=== PATIENT | female | born 1995 | race Asian ===

== ENCOUNTER 2016-03-23 18:30 | Emergency (ER) | payer SELFPAY | END 2016-03-23 20:02 | disposition left against medical advice (07) | LOC: ER 18:30 | DX: R51 Headache (principal); R11.10 Vomiting, unspecified; Z53.21 Procedure and treatment not carried out due to patient leaving prior to being seen by health care provider ==

== ENCOUNTER 2017-11-12 07:47 | Inpatient (IN) | payer SELFPAY ==
[~2017-11-12] VITALS: Ht 167.6 cm; Wt 93.0 kg
[2017-11-12] MEDS ORDERED: IV RINGERS,LACTATED 1000ML 1,000 ML IV SCH (08:29)
[2017-11-12] MEDS ORDERED: MAG HYDROX/ALUMINUM HYD/SIMETH 30 ML ORAL.SUSP PO PRN ×2 (08:30→09:45)
[2017-11-12] MEDS ORDERED: ONDANSETRON PF 4 MG/2 ML VIAL. IV PRN (08:30)
[2017-11-12] MEDS ORDERED: LIDOCAINE 1% PF 30 ML VIAL. INJ PRN (08:30)
[2017-11-12] MEDS ORDERED: OXYTOCIN 30 UNIT/500 ML PREMIX 500 ML IV PRN ×3 (08:30→09:45)
[2017-11-12] MEDS ORDERED: TERBUTALINE 1 MG/ML VIAL. SQ PRN (08:30)
[2017-11-12] MEDS ORDERED: 0.9 % SODIUM CHLORIDE 10 ML DISP.SYRIN. IV PRN ×2 (08:30→09:45)
[2017-11-12] MEDS ORDERED: fentaNYL PF VIAL 100 MCG/2 ML VIAL IV PRN (08:30)
[2017-11-12 09:00] LABS: BASO % 0 % (0-3); EOS # 0.9 x10^3/uL (0.0-0.7); EOS % 7 % (0-3); HEMATOCRIT 32.6 % (36.0-47.0); HEMOGLOBIN 10.4 g/dL (12.0-15.5); LYMPH # 1.8 x10^3/uL (1.0-4.8); LYMPH % 15 % (24-48); MEAN CORPUSCULAR HEMOGLOBIN 24 pg (25-35); MEAN CORPUSCULAR HGB CONC 32 g/dL (31-37); MEAN CORPUSCULAR VOLUME 75 fL (79-100); MONO # 0.7 x10^3/uL (0.0-1.1); MONO % 6 % (0-9); NEUT # 9.1 x10^3uL (1.8-7.7); NEUT % 73 % (31-73); PLATELET COUNT 297 x10^3/uL (140-400); RED BLOOD COUNT 4.33 x10^6/uL (3.50-5.40); RED CELL DISTRIBUTION WIDTH 17.6 % (11.5-14.5); WHITE BLOOD COUNT 12.6 x10^3/uL (4.0-11.0)
[2017-11-12] MEDS ORDERED: AMPICILLIN SODIUM 2 GM in IV NORMAL SALINE 100ML 100 ML IV ONE (09:00)
[2017-11-12 09:12] VITALS: BP 108/67
[2017-11-12] MEDS ORDERED: CARBOPROST TROMETHAMINE 250 MCG/ML AMPUL IM ONE ×2 (09:39→09:45)
[2017-11-12] MEDS ORDERED: BENZOCAINE 20% TOPICAL AEROSOL SPRAY 57GM CAN. TP PRN (09:45)
[2017-11-12] MEDS ORDERED: ZOLPIDEM 5 MG TABLET. PO PRN (09:45)
[2017-11-12] MEDS ORDERED: MAGNESIUM HYDROXIDE 2,400 MG/30 ML ORAL.SUSP. PO PRN (09:45)
[2017-11-12] MEDS ORDERED: HYDROCORTISONE 1% TOPICAL OINTMENT 30GM TUBE. TP PRN (09:45)
[2017-11-12] MEDS ORDERED: ACETAMINOPHEN 325 MG TABLET. PO PRN (09:45)
[2017-11-12] MEDS ORDERED: PHENYLEPH/MINERAL OIL/PETROLAT RECTAL OINTMENT 28GM TUBE. RC PRN (09:45)
[2017-11-12] MEDS ORDERED: SIMETHICONE 80 MG TAB.CHEW PO PRN (09:45)
[2017-11-12] MEDS ORDERED: diphenhydrAMINE HCL 25 MG CAPSULE PO PRN (09:45)
[2017-11-12] MEDS ORDERED: IBUPROFEN 800 MG TABLET. PO SCH (09:45)
--- NOTE | 2017-11-12 09:50 | PDOC ---
VAGINAL DELIVERY DATE DATE: 11/12/17 TIME: 09:47 : 2 Para: 1 VAGINAL DELIVERY: VTX VACCUM ASSISTED: Yes NUMBER OF PULLS 3 NUMBER OF POP OFFS 1 SEX: Female WEIGHT 7/8 Nuchal Cord: No Amniotic Fluid: Clear PAIN: Natural EPISIOTOMY: No EXTENSION: No EBL 500cc COMPLICATIONS None CONDITION Stable Signs of Intrauterine Infectio: None Shoulder Dystocia: No DIAGNOSIS JAMESON Juarez MD Nov 12, 2017 09:50
[2017-11-12] MEDS ORDERED: AMPICILLIN SODIUM 1 GM in IV NORMAL SALINE 50ML 50 ML IV SCH (12:00)
[2017-11-12 13:00] VITALS: BP 104/62
[2017-11-12 14:00] VITALS: BP 95/64
[2017-11-12] MEDS ORDERED: FERROUS SULFATE 325 MG TABLET. PO SCH (17:00)
[2017-11-12 18:03] VITALS: BP 110/68
[2017-11-13] VITALS: BP 100/62
[2017-11-13 04:00] VITALS: BP 114/70
--- NOTE | 2017-11-13 09:28 | PDOC ---
Provider Note Provider Note Doing well VSS uterus NTTP FU in AM Vital Sign - Last 24 Hours 11/12/17 11/12/17 11/12/17 11/12/17 13:00 13:00 14:00 18:03 Temp 98.0 98.0 98.3 98.0 98.0 98.3 Pulse 76 76 80 Resp 24 20 20 B/P (MAP) 104/62 (76) 95/64 (74) 110/68 (82) Pulse Ox 99 99 99 O2 Delivery Room Air Room Air Room Air Room Air 11/12/17 11/13/17 11/13/17 19:47 00:00 04:00 Temp 98.3 98.0 98.3 98.0 Pulse 81 81 Resp 18 B/P (MAP) 100/62 (75) 114/70 (85) Pulse Ox 97 95 O2 Delivery Room Air Room Air Room Air CBC - BMP 11/13/17 04:25 JAMESON DE LA GARZA MD Nov 13, 2017 09:28
[2017-11-13] MEDS ORDERED: IBUPROFEN 800 MG TABLET. PO PRN (10:00)
[2017-11-13 10:30] VITALS: BP 96/63
[2017-11-13 17:40] VITALS: BP 98/61
[2017-11-13 22:30] VITALS: BP 123/80
[2017-11-14 05:05] VITALS: BP 123/83
--- NOTE | 2017-11-14 12:51 | PDOC3 ---
OB DISCHARGE SUMMARY DATE OF ADMISSION: 11/12/17 DATE OF DISCHARGE: 11/14/17 REASON FOR ADMISSION: Onset of labor INTRAPARTUM PROCEDURES: Spontanous Vag Deliv DISCHARGE DIAGNOSIS: Term Delivered DISCHARGE INFORMATION: Activity (ad sonya), Diet (regular), Instructions (pelvic rest x 6 wks) HOSPITAL COURSE Term gestation delivered vaginally without any complications JOEY WATSON Jr, MD Nov 14, 2017 12:51
--- NOTE | 2017-11-14 12:52 | DISCH ---
DISCHARGE INSTRUCTIONS Condition on Discharge Condition on Discharge: Stable Activity After Discharge Activity Instructions for Disc: Activity as tolerated Lifting Instructions after Dis: No heavy lifting Driving Instructions after Dis: Do not drive today Diet after Discharge Diet after Discharge: Regular Contacting the [facility] after DC Call your doctor for: Concerns you may have Follow-Up Follow up with: Jessica in 6 wks. JOEY WATSON Jr, MD Nov 14, 2017 12:52
[2017-11-14] MEDS ORDERED: NAPR-683 PO (12:54)
[2017-11-14] MEDS ORDERED: HYDR-971 PO (12:54)
== END 2017-11-14 14:20 | disposition home or self-care (01) | DRG 775 ==
LOC: OBSVTOIN 07:47 → 3 SO LND 07:47 → 3 NORTH 13:00
PROVIDERS: ADMIT Specialist; ATTEND Specialist
PROC: 10E0XZZ Delivery of Products of Conception, External Approach (ICD-10-PCS; principal; 2017-11-12)
DX: O80 Encounter for full-term uncomplicated delivery (principal); Z37.0 Single live birth; Z3A.39 39 weeks gestation of pregnancy
CPT/HCPCS: 36415; 85014; 85025; 86592; 86850; 86900; 86901; 87653; G0378; J0290; J2590; J7120

== ENCOUNTER 2019-01-16 06:48 | Observation (INO) | payer SELFPAY ==
[~2019-01-16 06:48] MED LIST: HYDR-3164 PO; NAPR-683 PO
[2019-01-16] MEDS ORDERED: IV RINGERS,LACTATED 1000ML 1,000 ML IV SCH (06:54)
[2019-01-16 07:17] LABS: BILIRUBIN,URINE SMALL (NEG); CLARITY,URINE CLEAR; COLOR,URINE AMBER; NITRITE,URINE NEGATIVE (NEG); PH,URINE 6.5; PROTEIN,URINE NEGATIVE (NEG-TRACE)
[2019-01-16 07:42] LABS: SQUAMOUS EPITHELIAL CELL,UR MANY /LPF
[2019-01-16 07:43] LABS: BACTERIA,URINE FEW /HPF (0-FEW); RBC,URINE RARE /HPF (0-2); WBC,URINE OCC /HPF (0-4)
[2019-01-16] MEDS ORDERED: PANTOPRAZOLE 40 MG TABLET.DR. PO ONE (07:45)
[2019-01-16] MEDS ORDERED: ACETAMINOPHEN 500 MG TABLET PO ONE (07:45)
[2019-01-16 08:12] LABS: BASO % 0 % (0-3); EOS # 0.1 x10^3/uL (0.0-0.7); EOS % 1 % (0-3); HEMATOCRIT 29.8 % (36.0-47.0); HEMOGLOBIN 9.7 g/dL (12.0-15.5); LYMPH # 0.5 x10^3/uL (1.0-4.8); LYMPH % 7 % (24-48); MEAN CORPUSCULAR HEMOGLOBIN 25 pg (25-35); MEAN CORPUSCULAR HGB CONC 33 g/dL (31-37); MEAN CORPUSCULAR VOLUME 77 fL (79-100); MONO # 0.6 x10^3/uL (0.0-1.1); MONO % 9 % (0-9); NEUT # 5.8 x10^3/uL (1.8-7.7); NEUT % 83 % (31-73); PLATELET COUNT 231 x10^3/uL (140-400); RED BLOOD COUNT 3.86 x10^6/uL (3.50-5.40); RED CELL DISTRIBUTION WIDTH 16.3 % (11.5-14.5)
[2019-01-16 08:20] LABS: BARBITURATES NEG (NEG); BENZODIAZEPINES NEG (NEG); CANNABINOIDS NEG (NEG); COCAINE NEG (NEG); METHADONE NEG (NEG); OPIATES NEG (NEG); PHENCYCLIDINE NEG (NEG)
[2019-01-16 08:21] LABS: AMPHETAMINE/METHAMPHETAMINE NEG (NEG)
--- NOTE | 2019-01-16 09:07 | RAD ---
OB ULTRASOUND, > 14 WEEKS Clinical Indication: No care. Comparison: None. Technique: Multiple grayscale images, color Doppler, and M-mode images of the uterus are obtained. Findings: There is a single intrauterine gestation in vertex presentation. The placenta is anterior in location without evidence of placenta previa. The amount of amniotic fluid appears appropriate. Amniotic fluid index is 14.8 cm. The cervix is not visualized. Biometrical data: BPD = 8.1 cm for 32 weeks 4 days. HC = 29.7 cm for 32 weeks 6 days. AC = 28.2 cm for 32 weeks 1 days. FL = 6.2 cm for 32 weeks 0 days. HC/AC ratio = 1.06. Overall, the estimated sonographic gestational age is 32 weeks and 3 days for an estimated date of delivery of March 10, 2019. Estimated weight is 1931 +/- 286 grams. A 4 chamber heart is identified with positive cardiac activity. The estimated heart rate is 157 beats per minute. stomach and urinary bladder are identified. Both kidneys are seen. The visualized spine is unremarkable. A complete anatomic survey is not performed due to advanced gestational age. Impression: Single live intrauterine with estimated sonographic gestational age of 32 weeks and 3 days. Electronically signed by: Alfredo Laboy MD (01/16/2019 9:04 AM) [facility]
== END 2019-01-16 11:10 | disposition home or self-care (01) ==
LOC: 3 SO LND 06:48
PROVIDERS: ADMIT Obstetrics & Gynecology; ATTEND Obstetrics & Gynecology
DX: O26.893 Other specified pregnancy related conditions, third trimester (principal); R10.13 Epigastric pain; R51 Headache; Z3A.32 32 weeks gestation of pregnancy
CPT/HCPCS: 36415; 76805; 80307; 81001; 85025; 86592; 86703; 86706; 86762; 86850; 86900; 86901; 87491; 87529; 87591; G0378; G0379; J7120

== ENCOUNTER 2020-08-27 21:30 | Emergency (ER) | payer MEDICAID ==
[~2020-08-27] VITALS: Ht 172.7 cm; Wt 90.0 kg
[~2020-08-27 21:30] MED LIST changes: +DOCU-109 PO; +FERR325T14 PO; +IBUP-1060 PO
[2020-08-27 23:00] VITALS: BP 105/68
[2020-08-28 00:05] LABS: BILIRUBIN,URINE NEGATIVE (NEG); CLARITY,URINE CLOUDY; COLOR,URINE YELLOW; NITRITE,URINE NEGATIVE (NEG); PROTEIN,URINE 100 mg/dL (NEG-TRACE)
[2020-08-28 00:08] LABS: U PREG PATIENT POSITIVE (NEG)
[2020-08-28 00:11] LABS: BACTERIA,URINE MANY /HPF (0-FEW); WBC,URINE TNTC /HPF (0-4)
== END 2020-08-28 01:56 | disposition left against medical advice (07) ==
LOC: ER 21:30
DX: R30.0 Dysuria (principal); Z53.21 Procedure and treatment not carried out due to patient leaving prior to being seen by health care provider
CPT/HCPCS: 81001; 81025; 87086

== ENCOUNTER 2021-03-18 09:08 | Inpatient (IN) | payer MEDICAID ==
[~2021-03-18] VITALS: Ht 160 cm; Wt 97.0 kg
[2021-03-18] MEDS ORDERED: TERBUTALINE 1 MG/ML VIAL. SQ PRN (09:30)
[2021-03-18] MEDS ORDERED: IBUPROFEN 400 MG TABLET. PO PRN (09:30)
[2021-03-18] MEDS ORDERED: PENICILLIN G K 5,000,000 UNIT in IV DEXTROSE 5% 100ML 100 ML IV ONE (09:30)
[2021-03-18] MEDS ORDERED: LIDOCAINE 1% PF 30 ML VIAL. INJ PRN (09:30)
[2021-03-18] MEDS ORDERED: IV RINGERS,LACTATED 1000ML 1,000 ML IV SCH (09:30)
[2021-03-18] MEDS ORDERED: 0.9 % SODIUM CHLORIDE 10 ML DISP.SYRIN. IV PRN ×2 (09:30→12:30)
[2021-03-18] MEDS ORDERED: OXYTOCIN 30 UNIT/500 ML PREMIX 500 ML IV PRN ×3 (09:30→12:30)
[2021-03-18] MEDS ORDERED: OXYTOCIN PREMIX 30 UNIT/500 ML NS BAG. IV ONE (10:00)
[2021-03-18 10:06] LABS: BASO # 0.1 x10^3/uL (0.0-0.2); BASO % 1 % (0-3); EOS # 0.2 x10^3/uL (0.0-0.7); EOS % 2 % (0-3); HEMATOCRIT 32.5 % (36.0-47.0); HEMOGLOBIN 10.5 g/dL (12.0-15.5); LYMPH # 2.7 x10^3/uL (1.0-4.8); LYMPH % 23 % (24-48); MEAN CORPUSCULAR HEMOGLOBIN 24 pg (25-35); MEAN CORPUSCULAR HGB CONC 32 g/dL (31-37); MEAN CORPUSCULAR VOLUME 73 fL (79-100); MONO # 0.9 x10^3/uL (0.0-1.1); MONO % 7 % (0-9); NEUT # 7.8 x10^3/uL (1.8-7.7); NEUT % 67 % (31-73); PLATELET COUNT 390 x10^3/uL (140-400); RED BLOOD COUNT 4.48 x10^6/uL (3.50-5.40); RED CELL DISTRIBUTION WIDTH 19.9 % (11.5-14.5); WHITE BLOOD COUNT 11.5 x10^3/uL (4.0-11.0)
[2021-03-18 10:24] LABS: CALCIUM 8.4 mg/dL (8.5-10.1); CREATININE 0.8 mg/dL (0.6-1.0); GFR 87.4; POTASSIUM 3.7 mmol/L (3.5-5.1)
[2021-03-18 10:31] LABS: ALBUMIN 2.8 g/dL (3.4-5.0); ALBUMIN/GLOBULIN RATIO 0.5 (1.0-1.7); TOTAL BILIRUBIN 0.6 mg/dL (0.2-1.0); TOTAL PROTEIN 8.1 g/dL (6.4-8.2)
[2021-03-18] MEDS ORDERED: DOCUSATE SODIUM 100 MG CAPSULE. PO PRN (12:30)
[2021-03-18] MEDS ORDERED: diphenhydrAMINE HCL 25 MG CAPSULE PO PRN (12:30)
[2021-03-18] MEDS ORDERED: HYDROCORTISONE 1% TOPICAL OINTMENT 30GM TUBE. TP PRN (12:30)
[2021-03-18] MEDS ORDERED: MAG HYDROX/ALUMINUM HYD/SIMETH 30 ML ORAL.SUSP PO PRN (12:30)
[2021-03-18] MEDS ORDERED: SIMETHICONE 80 MG TAB.CHEW PO PRN (12:30)
[2021-03-18] MEDS ORDERED: TDaP (BOOSTRIX) per PROTOCOL. MC PRN (12:30)
[2021-03-18] MEDS ORDERED: BENZOCAINE 20% TOPICAL AEROSOL SPRAY 57GM CAN. TP PRN (12:30)
[2021-03-18] MEDS ORDERED: PHENYLEPH/MINERAL OIL/PETROLAT RECTAL OINTMENT TUBE. RC PRN (12:30)
[2021-03-18] MEDS ORDERED: MMR per PROTOCOL. MC PRN (12:30)
[2021-03-18] MEDS ORDERED: ACETAMINOPHEN 325 MG TABLET. PO PRN (12:30)
--- NOTE | 2021-03-18 13:56 | PDOC1 ---
[facility] H[facility]P Date of Admission: Date of Admission: Mar 18, 2021 at 09:08 History of Present Illness: 26yo presents with complaints of painful UCs, onset 0700. 9cm on arrival. No PNC. FH: 36cm - vtx well descended in pelvis. Denies LOF. Support person present for assistance with interpretation. Denies significant medical history. Denies complications with previous pregnancies, labor, or delivery. Previous x 4. Pelvis proven to 7lbs. Otherwise denies complaints. Past Medical History: Cardiovascular: No pertinent hx Pulmonary: No pertinent hx GI: No pertinent hx Heme/Onc: No pertinent hx Hepatobiliary: No pertinent hx Psych: No pertinent hx Rheumatologic: No pertinent hx Infectious disease: No pertinent hx ENT: No pertinent hx Renal/: No pertinent hx Endocrine: No pertinent hx Dermatology: No pertinent hx Grav: 5 Para: 4 Social History: Smoke: No ALCOHOL: none Drugs: None Medications: Meds: Current Medications Medications (Trade) Dose Ordered Sig/Sofia Route PRN Reason Start Time Stop Time Status Last Admin Dose Admin Ibuprofen (Motrin) 800 mg PRN Q6HRS PRN PO PAIN 03/18/21 09:30 03/18/21 11:46 Allergies: Coded Allergies: No Known Drug Allergies (Unverified , 11/12/17) Physical Exam: PE: GENERAL: No apparent distress. Alert and oriented. HEENT: Head normocephalic, atraumatic. NECK: Supple LUNGS: Clear to auscultation. HEART: RRR, S1, S2 present, pulses intact ABDOMEN: Soft, positive bowel sounds. EXTREMITIES: No cyanosis or edema. NEUROLOGIC: Normal speech, normal tone PSYCHIATRIC: Normal affect, normal mood. SKIN: No ulceration. Labs: Laboratory Tests Test 03/18/21 09:43 03/18/21 10:05 White Blood Count 11.5 x10^3/uL (4.0-11.0) H Red Blood Count 4.48 x10^6/uL (3.50-5.40) Hemoglobin 10.5 g/dL (12.0-15.5) L Hematocrit 32.5 % (36.0-47.0) L Mean Corpuscular Volume 73 fL (79-100) L Mean Corpuscular Hemoglobin 24 pg (25-35) L Mean Corpuscular Hemoglobin Concent 32 g/dL (31-37) Red Cell Distribution Width 19.9 % (11.5-14.5) H Platelet Count 390 x10^3/uL (140-400) Neutrophils (%) (Auto) 67 % (31-73) Lymphocytes (%) (Auto) 23 % (24-48) L Monocytes (%) (Auto) 7 % (0-9) Eosinophils (%) (Auto) 2 % (0-3) Basophils (%) (Auto) 1 % (0-3) Neutrophils # (Auto) 7.8 x10^3/uL (1.8-7.7) H Lymphocytes # (Auto) 2.7 x10^3/uL (1.0-4.8) Monocytes # (Auto) 0.9 x10^3/uL (0.0-1.1) Eosinophils # (Auto) 0.2 x10^3/uL (0.0-0.7) Basophils # (Auto) 0.1 x10^3/uL (0.0-0.2) Sodium Level 140 mmol/L (136-145) Potassium Level 3.7 mmol/L (3.5-5.1) Chloride Level 103 mmol/L (98-107) Carbon Dioxide Level 22 mmol/L (21-32) Anion Gap 15 (6-14) H Blood Urea Nitrogen 9 mg/dL (7-20) Creatinine 0.8 mg/dL (0.6-1.0) Estimated GFR (Cockcroft-Gault) 87.4 BUN/Creatinine Ratio 11 (6-20) Glucose Level 82 mg/dL (70-99) Calcium Level 8.4 mg/dL (8.5-10.1) L Total Bilirubin 0.6 mg/dL (0.2-1.0) Aspartate Amino Transferase (AST) 23 U/L (15-37) Alanine Aminotransferase (ALT) 20 U/L (14-59) Alkaline Phosphatase 182 U/L (46-116) H Total Protein 8.1 g/dL (6.4-8.2) Albumin 2.8 g/dL (3.4-5.0) L Albumin/Globulin Ratio 0.5 (1.0-1.7) L Treponema pallidum Antibody Nonreactive (Nonreactive) Hepatitis B Surface Antigen Nonreactive (Nonreactive) HIV (1&2) Antibody Screen Nonreactive (Nonreactive) SARS-CoV-2 RNA (SUMI) Negative (Negative) SARS-CoV-2 Antigen (Rapid) Negative (NEGATIVE) Laboratory Tests 03/18/21 09:43 Laboratory Tests 03/18/21 09:43 Laboratory Tests 03/18/21 09:43 Assessment & Plan: A/P 1. 26yo 2. Labor 3. No PNC - FH c/w term , labs pending 4. GBS unknown - collected/pending Precipitous labor, expectant management, anticipate imminent . VALENTINE BOONE CNM Mar 18, 2021 13:56
[2021-03-18] MEDS ORDERED: PENICILLIN G K 2,500,000 UNIT in IV DEXTROSE 5% 50 ML IV SCH (14:00)
[2021-03-18 14:30] VITALS: BP 112/77
[2021-03-18 17:30] VITALS: BP 110/56
--- NOTE | 2021-03-18 19:07 | PDOC4 ---
VAGINAL DELIVERY DATE DATE: 03/18/21 TIME: 19:02 TIME 0947 : 5 Para: 4 VAGINAL DELIVERY: VTX VACCUM ASSISTED: No PLACENTA: Spontaneous 8/9 SEX: Male WEIGHT Weight [7lb10.4oz (3470gm)] Nuchal Cord: No Amniotic Fluid: Meconium PAIN: Natural EPISIOTOMY: No EBL 400mL ADDITIONAL NOTES Precipitous delivery, RN assisted delivery with EDDIM in constant attendance. VTX delivered GAL with external rotation to ROT immediately followed by full expulsion of vigorous male . Intact perineum. Signs of Intrauterine Infectio: None Shoulder Dystocia: No DIAGNOSIS VALENTINE BOONE CNM Mar 18, 2021 19:07
[2021-03-18 20:00] VITALS: BP 131/78
[2021-03-18 22:58] LABS: BILIRUBIN,URINE NEGATIVE (NEG); CLARITY,URINE CLEAR; COLOR,URINE YELLOW; NITRITE,URINE NEGATIVE (NEG); PROTEIN,URINE NEGATIVE (NEG-TRACE)
[2021-03-18 23:05] LABS: BACTERIA,URINE 0 /HPF (0-FEW); BARBITURATES NEG (NEG); BENZODIAZEPINES NEG (NEG); CANNABINOIDS NEG (NEG); COCAINE NEG (NEG); METHADONE NEG (NEG); OPIATES NEG (NEG); PHENCYCLIDINE NEG (NEG); RBC,URINE 20-40 /HPF (0-2)
[2021-03-18 23:06] LABS: AMPHETAMINE/METHAMPHETAMINE NEG (NEG)
[2021-03-19 01:00] VITALS: BP 120/61
[2021-03-19 05:00] VITALS: BP 126/77
[2021-03-19] MEDS: MULTIVITAMIN with MINERAL TABLET. PO SCH (08:27)
[2021-03-19] MEDS: IBUPROFEN 400 MG TABLET. PO PRN (08:27)
[2021-03-19] MEDS: FERROUS SULFATE 325 MG TABLET. PO SCH ×2 (08:27→17:41)
[2021-03-19 08:30] VITALS: BP 133/69
[2021-03-19 08:33] LABS: BASO % 0 % (0-3); EOS # 0.3 x10^3/uL (0.0-0.7); EOS % 2 % (0-3); HEMATOCRIT 27.6 % (36.0-47.0); HEMOGLOBIN 8.8 g/dL (12.0-15.5); LYMPH # 2.1 x10^3/uL (1.0-4.8); LYMPH % 19 % (24-48); MEAN CORPUSCULAR HEMOGLOBIN 23 pg (25-35); MEAN CORPUSCULAR HGB CONC 32 g/dL (31-37); MEAN CORPUSCULAR VOLUME 72 fL (79-100); MONO # 0.7 x10^3/uL (0.0-1.1); MONO % 6 % (0-9); NEUT # 7.9 x10^3/uL (1.8-7.7); NEUT % 72 % (31-73); PLATELET COUNT 290 x10^3/uL (140-400); RED BLOOD COUNT 3.82 x10^6/uL (3.50-5.40)
--- NOTE | 2021-03-19 10:02 | PDOC ---
SORORITY SUPERVISOR PROGRESS NOTE Date of Service: DATE: 03/19/21 TIME: 10:01 Subjective: Pt with good pain control. Max PO. Voiding. Minimal lochia. Objective: Vital Signs: Vital Signs Date Time Temp Pulse Resp B/P (MAP) Pulse Ox O2 Delivery O2 Flow Rate FiO2 03/18/21 14:30 98.8 83 20 112/77 (89) 98.8 03/18/21 20:00 98 Room Air Vital Signs Date Time Temp Pulse Resp B/P (MAP) Pulse Ox O2 Delivery O2 Flow Rate FiO2 03/19/21 05:00 98.6 65 18 126/77 (93) 98 Room Air 98.6 Labs: Laboratory Tests Test 03/18/21 10:05 03/18/21 22:45 03/19/21 08:15 SARS-CoV-2 RNA (SUMI) Negative (Negative) SARS-CoV-2 Antigen (Rapid) Negative (NEGATIVE) Urine Collection Type Unknown Urine Color Yellow Urine Clarity Clear Urine pH 7.0 (<5.0-8.0) Urine Specific [place] 1.015 (1.000-1.030) Urine Protein Negative mg/dL (NEG-TRACE) Urine Glucose (UA) Negative mg/dL (NEG) Urine Ketones (Stick) Negative mg/dL (NEG) Urine Blood Moderate (NEG) Urine Nitrite Negative (NEG) Urine Bilirubin Negative (NEG) Urine Urobilinogen Dipstick 2.0 mg/dL (0.2 mg/dL) Urine Leukocyte Esterase Trace (NEG) Urine RBC 20-40 /HPF (0-2) Urine WBC 1-4 /HPF (0-4) Urine Squamous Epithelial Cells Few /LPF Urine Bacteria 0 /HPF (0-FEW) Urine Mucus Slight /LPF Urine Opiates Screen Neg (NEG) Urine Methadone Screen Neg (NEG) Urine Barbiturates Neg (NEG) Urine Phencyclidine Screen Neg (NEG) Urine Amphetamine/Methamphetamine Neg (NEG) Urine Benzodiazepines Screen Neg (NEG) Urine Cocaine Screen Neg (NEG) Urine Cannabinoids Screen Neg (NEG) Urine Ethyl Alcohol Neg (NEG) White Blood Count 11.0 x10^3/uL (4.0-11.0) Red Blood Count 3.82 x10^6/uL (3.50-5.40) Hemoglobin 8.8 g/dL (12.0-15.5) L Hematocrit 27.6 % (36.0-47.0) L Mean Corpuscular Volume 72 fL (79-100) L Mean Corpuscular Hemoglobin 23 pg (25-35) L Mean Corpuscular Hemoglobin Concent 32 g/dL (31-37) Red Cell Distribution Width 20.0 % (11.5-14.5) H Platelet Count 290 x10^3/uL (140-400) Neutrophils (%) (Auto) 72 % (31-73) Lymphocytes (%) (Auto) 19 % (24-48) L Monocytes (%) (Auto) 6 % (0-9) Eosinophils (%) (Auto) 2 % (0-3) Basophils (%) (Auto) 0 % (0-3) Neutrophils # (Auto) 7.9 x10^3/uL (1.8-7.7) H Lymphocytes # (Auto) 2.1 x10^3/uL (1.0-4.8) Monocytes # (Auto) 0.7 x10^3/uL (0.0-1.1) Eosinophils # (Auto) 0.3 x10^3/uL (0.0-0.7) Basophils # (Auto) 0.0 x10^3/uL (0.0-0.2) Laboratory Tests 03/19/21 08:15 Laboratory Tests 03/19/21 08:15 Physical Exam: GENERAL: No apparent distress. Alert and oriented. HEENT: Head normocephalic, atraumatic. NECK: Supple LUNGS: Clear to auscultation. HEART: RRR, S1, S2 present, pulses intact ABDOMEN: Soft, positive bowel sounds. EXTREMITIES: No cyanosis or edema. NEUROLOGIC: Normal speech, normal tone PSYCHIATRIC: Normal affect, normal mood. SKIN: No ulceration. FFNT below umb No C/C/E Assessment & Plan: A/P 26y PPD #1 s/p 1.) PP doing well 2.) No care drop in labs ordered 3.) Anemia - Hgb 10.5 -> 8.8, on Fe 4.) H/o PPH lochia nml with this delivery 5.) Cont PP care ROLAND RUSSELL MD Mar 19, 2021 10:02
[2021-03-19] MEDS ORDERED: DIPHTH,PERTUSS(ACELL),TET TOX 0.5 ML DISP.SYRIN. VAX IM ONE (15:00)
[2021-03-19] MEDS ORDERED: FLU VACC QUAD 21-22 (6MOS+) PF 0.5 ML SYRINGE. VAX IM ONE (15:00)
[2021-03-19 17:40] VITALS: BP 107/56
[2021-03-20 00:20] VITALS: BP 131/71
[2021-03-20] MEDS: IBUPROFEN 400 MG TABLET. PO PRN ×2 (06:15→19:56)
[2021-03-20 06:20] VITALS: BP 140/78
[2021-03-20 08:15] VITALS: BP 112/72
[2021-03-20] MEDS: MULTIVITAMIN with MINERAL TABLET. PO SCH (08:35)
[2021-03-20] MEDS: FERROUS SULFATE 325 MG TABLET. PO SCH ×2 (08:35→17:30)
--- NOTE | 2021-03-20 15:56 | PDOC ---
PASTEURIZER HELPER PROGRESS NOTE Date of Service: DATE: 03/20/21 TIME: 15:54 Subjective: Doing well. Pain well managed with PO meds. Tolerates diet, activity, and voiding without difficulty. Otherwise denies complaints. Friend at bedside for assistance with translation. Objective: Objective: FF @ U/1, scant lochia. No edema. Vital Signs: Vital Signs Date Time Temp Pulse Resp B/P (MAP) Pulse Ox O2 Delivery O2 Flow Rate FiO2 03/19/21 08:30 98.9 59 20 133/69 (90) 98.9 03/19/21 21:00 Room Air 03/20/21 00:20 97 Vital Signs Date Time Temp Pulse Resp B/P (MAP) Pulse Ox O2 Delivery O2 Flow Rate FiO2 03/20/21 08:15 98.2 70 18 112/72 (85) 97 Room Air 98.2 Physical Exam: GENERAL: No apparent distress. Alert and oriented. HEENT: Head normocephalic, atraumatic. NECK: Supple LUNGS: Clear to auscultation. HEART: RRR, S1, S2 present, pulses intact ABDOMEN: Soft, positive bowel sounds. EXTREMITIES: No cyanosis or edema. NEUROLOGIC: Normal speech, normal tone PSYCHIATRIC: Normal affect, normal mood. SKIN: No ulceration. Assessment & Plan: PPD # 2 s/p , intact perineum. to remain inpt overnight 2/2 bili. Continue routine PP care. Anticipate d/c home tomorrow. VALENTINE BOONE CNM Mar 20, 2021 15:56
[2021-03-20 16:10] VITALS: BP 114/71
--- NOTE | 2021-03-20 17:07 | PATHOLOGY ---
[facility] Accession Number: [id number] . 01 Material submitted: . placenta - PLACENTA- MECONIUM STAINED FLUID . 01 Clinical history: . NO CARE DELIVERY . 02 Diagnosis: 396 gram term placenta of an estimated 39 weeks gestation with attached membranes and umbilical cord: - Placental weight at approximate 15th percentile for estimated gestational age. - Central insertion of umbilical cord. 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 - Focal decidual necrosis and acute inflammation. (ABEBEM:daxa; 03/20/2021) [facility] 03/20/2021 1540 Local . 02 Comment: There is no evidence of an acute chorioamnionitis or villitis. (ABEBEM:daxa; 03/20/2021) . 02 Electronically signed: . Eyal Traylor MD, Pathologist NPI- [id number] . 01 Gross description: . Fixative: Formalin Labeled: Placenta Specimen received: [place] placenta with attached membranes and umbilical cord Dimensions: 19.0 x 18.0 x 2.5 cm membranes appearance: Paige-pink with a pale green tinge, and opaque membrane insertion: Marginal Umbilical cord: 52.5 cm in length specimen walter, 1.0-1.5 cm in diameter Umbilical cord insertion: Central, 7.5 cm from the closest placental disc edge Number of umbilical vessels: 3 Umbilical cord appearance: Paige-pink paige-white, focally congested, displaying 4 coils per 10 cm segment Trimmed placental weight: 396 g surface: Blue-walter to pale green, displaying a normal arborizing vasculature pattern, a moderate amount of subchorionic fibrin deposition, and a marked to separation of the amnion. Maternal surface: Focally disrupted, but appears complete, with a moderate amount of surface calcifications comprising less than 5% of the total surface. Parenchyma: Sectioning reveals 2 paige white, laminated, irregularly shaped, indurated, lesions. The first lesion is located 4.5 cm from the closest disc edge, and measures 1.2 x 1.0 x 0.7 cm. The second lesion is located 1.4 cm from the closest disc edge, 1.5 cm from the first lesion and measures 2.4 x 1.5 x 1.3 cm. The lesion is comprised less than 5% of the total parenchymal volume. The remaining parenchyma appears red, congested, with no additional discrete masses or lesions. . Fire Prevention Inspector sections are submitted as follows: A1 proximal and distal umbilical cord A2 membranes, rolled A3 billing representative section of first lesion A4 billing representative section of second lesion A5 billing representative peripheral placenta A6 billing representative central placenta (J; 03/19/2021) [facility] 03/19/2021 1555 Local . 02 Pathologist provided ICD-10: Z3A.39 . 02 CPT . 155750 Specimen Comment: A courtesy copy of this report has been sent to [phone] Specimen Comment: Report sent to Specimen Comment: A duplicate report has been generated due to demographic updates. Performed at: 01 [facility] [address], [place] [id number] MD Topher Ruiz MD Phone: [phone] Performed at: 02 [facility] [address] [place], [place] [id number] MD Eyal Traylor MD Phone: [phone]
[2021-03-20 19:45] VITALS: BP 127/67
== END 2021-03-20 20:21 | disposition home or self-care (01) | DRG 807 ==
LOC: OBSVTOIN 09:08 → 3 SO LND 09:08
PROVIDERS: ADMIT Obstetrics & Gynecology; ATTEND Obstetrics & Gynecology
PROC: 10E0XZZ Delivery of Products of Conception, External Approach (ICD-10-PCS; principal; 2021-03-18)
DX: O77.0 Labor and delivery complicated by meconium in amniotic fluid (principal); Z37.0 Single live birth; O62.3 Precipitate labor; O99.02 Anemia complicating childbirth; D64.9 Anemia, unspecified; Z3A.01 Less than 8 weeks gestation of pregnancy; Z20.822 Contact with and (suspected) exposure to COVID-19
CPT/HCPCS: 36415; 80053; 80307; 81001; 85025; 86592; 86703; 86762; 86850; 86900; 86901; 87077; 87086; 87340; 87426; 87653; 90471; 90686; 90715; J2590; U0003; U0005; G0378